=== PATIENT | female | born 1960 | race Caucasian/White ===

== ENCOUNTER 2020-03-13 13:27 | Emergency (ER) | payer BC ==
[~2020-03-13] VITALS: Ht 167.6 cm; Wt 102.1 kg
--- NOTE | 2020-03-13 13:30 | NUR ---
Patient to ER bed 6 to gown for evaluation. Side rails up. Report given to Mirta GROSS.
[2020-03-13 13:31] VITALS: BP_SYST 142
--- NOTE | 2020-03-13 13:32 | NUR ---
Patient arrived in the ED for laceration on the left index finger after it got caught on her car door today. Denied any chest pain or shortness of breath. Denied any fevers, chills, nausea or vomiting. Patient is alert and oriented x4, respirations even and unlabored, speaking in full sentences, and ambulating with a steady gait. VSS, pain level 7/10. Informed of the approximate wait time. Instructed to notify ED staff for any changes in condition or worsening of symptoms while waiting to be seen by an ED provider. Patient verbalized understanding.
--- NOTE | 2020-03-13 13:35 | NUR ---
ER at bedside examining patient.
--- NOTE | 2020-03-13 13:36 | NUR ---
X-ray done at bedside as ordered by Dr. Qulies. Patient tolerated the procedure well.
[2020-03-13] MEDS ORDERED: ACETAMINOPHEN 500 MG TABLET PO ONE (13:45)
[2020-03-13] MEDS ORDERED: LIDOCAINE 1% 10 MG/ML, 20 ML MDV INJ ONE (13:45)
[2020-03-13] MEDS ORDERED: DIPH-TET-PERTUS Vaccine 0.5 ML VIAL (ADACEL) I.M. ONE (13:45)
--- NOTE | 2020-03-13 14:00 | NUR ---
ER Dr. Quiles at bedside performing laceration repair. Patient tolerated the procedure well.
[2020-03-13] MEDS ORDERED: NEOMY SULF/BACITRAC ZN/POLY 28 GM OINT..GM. TP ONE (14:15)
[2020-03-13 14:25] VITALS: BP_SYST 126
--- NOTE | 2020-03-13 14:25 | NUR ---
ER MD discussed with the patient the results and treatment provided. Patient given written and verbal discharge instructions and verbalized understanding. Opportunity for questions provided and answered. Patient in stable condition, last set of vital signs within normal limits, pain scale 0/10, speaking in full sentences and ambulated with a steady gait upon discharge. ID arm band removed. Rx of Bactrim and Ibuprofen given. Patient educated on pain management and to follow up with PMD. Medication side effect fact sheet provided.
[2020-03-13] MEDS ORDERED: BACITRACIN 1 GM OINT TP ONE (14:30)
== END 2020-03-13 14:25 | disposition home or self-care (01) ==
LOC: SED 13:27
DX: S61.211A Laceration without foreign body of left index finger without damage to nail, initial encounter (principal); W23.0XXA Caught, crushed, jammed, or pinched between moving objects, initial encounter; Y93.89 Activity, other specified; Y92.89 Other specified places as the place of occurrence of the external cause; Y99.8 Other external cause status
CPT/HCPCS: 12001; 73140; 90471; 90715; 99283; J2001

== ENCOUNTER 2020-03-15 11:28 | Emergency (ER) | payer BC ==
[~2020-03-15] VITALS: Ht 170.2 cm; Wt 104.3 kg
[2020-03-15 11:34] VITALS: BP_SYST 158
[2020-03-15 12:05] VITALS: BP_SYST 140
[2020-03-15] MEDS ORDERED: BACITRACIN 1 GM OINT TP ONE (12:13)
== END 2020-03-15 12:05 | disposition home or self-care (01) ==
LOC: SED 11:28
DX: S61.211D Laceration without foreign body of left index finger without damage to nail, subsequent encounter (principal); X58.XXXD Exposure to other specified factors, subsequent encounter
CPT/HCPCS: 99281

== ENCOUNTER 2020-03-24 05:25 | Emergency (ER) | payer BC ==
[~2020-03-24] VITALS: Ht 170.2 cm; Wt 104.3 kg
[2020-03-24 05:35] VITALS: BP_SYST 138
--- NOTE | 2020-03-24 05:35 | NUR ---
Pt ambulatory to bed 7 for evaluation
--- NOTE | 2020-03-24 05:40 | NUR ---
Patient came to ER. C/O suture removal x today. Patient states "due time for stitches removal after 8 days." A/O,X4, left index finger 4 stitches, no bleeding, vss.
--- NOTE | 2020-03-24 05:44 | NUR ---
Dr. Gonzales removed stitches. Patient tolerated well. No bleeding.
--- NOTE | 2020-03-24 05:44 | NUR ---
ER Dr. Gonzales at bedside examining patient.
[2020-03-24 06:03] VITALS: BP_SYST 138
--- NOTE | 2020-03-24 06:03 | NUR ---
Patient given written and verbal discharge instructions and verbalizes understanding. ER MD discussed with patient the results and treatment provided. Patient in stable condition. ID arm band removed. Rx of Keflex given. Patient educated on pain management and to follow up with PMD. Pain Scale 2/10. Opportunity for questions provided and answered. Medication side effect fact sheet provided.
== END 2020-03-24 06:03 | disposition home or self-care (01) ==
LOC: SED 05:25
DX: S61.211D Laceration without foreign body of left index finger without damage to nail, subsequent encounter (principal); L03.012 Cellulitis of left finger; W45.8XXD Other foreign body or object entering through skin, subsequent encounter
CPT/HCPCS: 99283